=== PATIENT | male | born 1960 | race Caucasian/White ===

== ENCOUNTER → 2018-12-07 | Outpatient (CLI) | payer OTHER ==
--- NOTE | 2018-12-07 12:04 | XR ---
EXAMINATION TYPE: XR chest 2V DATE OF EXAM: 12/07/2018 COMPARISON: 11/07/2010 HISTORY: 58-year-old male with cough TECHNIQUE: Frontal and lateral views FINDINGS: The cardiomediastinal silhouette, aorta, and pulmonary vasculature are within normal limits. There is some strandy atelectasis at the left base. Otherwise, lungs and pleural spaces are clear. IMPRESSION: No acute cardiopulmonary process.
== END | disposition home or self-care (01) ==
LOC: RADXRMAIN 08:03
PROVIDERS: ATTEND Internal Medicine
DX: J06.9 Acute upper respiratory infection, unspecified (principal)
CPT/HCPCS: 71046

== ENCOUNTER → 2019-03-26 | Outpatient (CLI) | payer OTHER ==
--- NOTE | 2019-03-27 09:53 | P.STRESS ---
- Stress Test Note Stress Test Results/Findings: Exam Performed: stress test Exam Date: 03/26/19 Reason for Exam: CHEST PAIN, ARRYTHMIA Height: 6 ft Weight: 106.594 kg Protocol: PERRY Stage: III Duration of Exercise: 9:00 Resting Heart Rate: 73 Resting Blood Pressure: 136/77 Maximum Achieved Heart Rate: 150 Maximum Achieved Blood Pressure: 198/64 85% PMHR: 139 100% PMHR: 164 METS: 10.5 Technologist Comment: Stress Test Results/Findings: This is a 58-year-old gentleman with history of smoking and family history of ischemic heart disease being evaluated for symptoms of chest pain and palpitations. Stress data the baseline EKG showed sinus rhythm with normal TN interval, QRS duration with occasional PVCs. Patient blood pressure at rest is 136/77 with pulse rate of 73. Patient walked on the Perry protocol for 9 minutes achieving a maximum heart rate of 1:50 with a blood pressure 198/64. EKGs taken during exercise showed that patient went into a junctional rhythm and junctional tachycardia and achieved a maximum heart rate of 150. Patient of mine in a junctional rhythm, but a heart rate came down to about 100 in the post exercise period. Final impression #1. Negative stress test #2 patient did not express any chest pain. #3. Patient developed junctional rhythm and junctional tachycardia during exercise. At the end of the test and also in [place]. Patient continued to be junctional rhythm without any clear-cut P waves. This could be further evaluated by 24-hour DCG.
--- NOTE | 2019-03-27 12:59 | EST ---
Stress Test Results/Findings: Exam Performed: stress test Exam Date: 03/26/19 Reason for Exam: CHEST PAIN, ARRYTHMIA Height: 6 ft Weight: 106.594 kg Protocol: PERRY Stage: III Duration of Exercise: 9:00 Resting Heart Rate: 73 Resting Blood Pressure: 136/77 Maximum Achieved Heart Rate: 150 Maximum Achieved Blood Pressure: 198/64 85% PMHR: 139 100% PMHR: 164 METS: 10.5 Technologist Comment: Stress Test Results/Findings: This is a 58-year-old gentleman with history of smoking and family history of ischemic heart disease being evaluated for symptoms of chest pain and palpitations. Stress data the baseline EKG showed sinus rhythm with normal MT interval, QRS duration with occasional PVCs. Patient blood pressure at rest is 136/77 with pulse rate of 73. Patient walked on the Perry protocol for 9 minutes achieving a maximum heart rate of 1:50 with a blood pressure 198/64. EKGs taken during exercise showed that patient went into a junctional rhythm and junctional tachycardia and achieved a maximum heart rate of 150. Patient of mine in a junctional rhythm, but a heart rate came down to about 100 in the post exercise period. Final impression #1. Negative stress test #2 patient did not express any chest pain. #3. Patient developed junctional rhythm and junctional tachycardia during exercise. At the end of the test and also in post exercise period ,. Patient continued to be junctional rhythm without any clear-cut P waves. This could be further evaluated by 24-hour DCG. RAMIROD
--- NOTE | 2019-03-29 10:27 | P.PN ---
Progress Note - Text Progress Note Date: 03/29/19 REPORT ON THE 24-HOUR DCG: Baseline EKG showed sinus rhythm with an average heart rate of about 84 bpm. Patient had frequent PVCs couplets, bigeminal pattern and has been pattern. Occasional APCs were noted. Patient complained of one episode of fluttering in the heart, not correlating with any cardiac events. Patient mentioned that he did not have much symptoms during the monitoring. Final impression #1. Sinus rhythm. #2. Frequent PVCs and couplets and 30 J pattern. #3. Rare PVCs #4. Patient complained of an episode of fluttering not correlating with any cardiac events. Patient did not have significant symptoms during the monitoring period
== END | disposition home or self-care (01) ==
LOC: RADNMMAIN 08:45
PROVIDERS: ATTEND Internal Medicine
DX: I49.3 Ventricular premature depolarization (principal); I47.1 Supraventricular tachycardia
CPT/HCPCS: 93017; 93225; 93226

== ENCOUNTER 2019-07-10 18:03 | Emergency (ER) | payer OTHER ==
[2019-07-10] MEDS ORDERED: SODIUM CHLORIDE 0.9% 1,000 ML IV STA (18:51)
--- NOTE | 2019-07-10 19:05 | ED ---
Chest Pain HPI - General Chief Complaint: Chest Pain Stated Complaint: CHEST PAIN Time Seen by Provider: 07/10/19 18:45 Source: patient, RN notes reviewed, old records reviewed Mode of arrival: ambulatory Limitations: no limitations - History of Present Illness Initial Comments: This is a 58-year-old male the ER for evaluation of chest pain anterior chest pain pain back pain in her shoulder blades. Patient has history of chronic back pain from work he did go to the chiropractor today and became very short of breath pain with a deep breath pain is anterior chest. He has had history of high blood pressure does have history of high cholesterol. He had a stress test about 4 weeks ago. He believes her results were normal. No other significant travel history does occasionally get swelling in his lower extremity is. does not take anything chronically for pain. MD Complaint: chest pain (Anterior chest), other (No rash worse with a deep breath) -: hour(s) Onset: during rest Pain Location: substernal Pain Radiation: back Severity: moderate Severity scale (1-10): 7 Quality: sharp Consistency: constant Improves With: nothing Worsens With: exertion, inspiration Anginal Symptoms: dyspnea Treatments Prior to Arrival: none - Related Data Home Medications Medication Instructions Recorded Confirmed Atorvastatin [Lipitor] 20 mg PO HS 07/10/19 07/10/19 Cbd Oil 1 ml PO DAILY 07/10/19 07/10/19 Melatonin 5 mg PO HS 07/10/19 07/10/19 Montelukast [Singulair] 10 mg PO HS 07/10/19 07/10/19 [place]-3 Fatty Acids [[place]-3] 1,000 mg PO DAILY 07/10/19 07/10/19 Topiramate [Topamax] 50 mg PO BID 07/10/19 07/10/19 lamoTRIgine [LaMICtal] 200 mg PO DAILY 07/10/19 07/10/19 Allergies Allergy/AdvReac Type Severity Reaction Status Date / Time No Known Allergies Allergy Verified 07/10/19 19:26 Review of Systems ROS Statement: Those systems with pertinent positive or pertinent negative responses have been documented in the HPI. ROS Other: All systems not noted in ROS Statement are negative. Past Medical History Past Medical History: Hyperlipidemia History of Any Multi-Drug Resistant Organisms: None Reported Past Surgical History: Orthopedic Surgery Past Psychological History: No Psychological Hx Reported Smoking Status: Current every day smoker Past Alcohol Use History: Occasional Past Drug Use History: None Reported General Exam Limitations: no limitations General appearance: alert, in no apparent distress Head exam: Present: atraumatic, normocephalic, normal inspection Eye exam: Present: normal appearance, PERRL, EOMI. Absent: scleral icterus, conjunctival injection, periorbital swelling ENT exam: Present: normal exam, mucous membranes moist Neck exam: Present: normal inspection. Absent: tenderness, meningismus, lymphadenopathy Respiratory exam: Present: normal lung sounds bilaterally. Absent: respiratory distress, wheezes, rales, rhonchi, stridor Cardiovascular Exam: Present: regular rate, normal rhythm, normal heart sounds. Absent: systolic murmur, diastolic murmur, rubs, gallop, clicks GI/Abdominal exam: Present: soft, normal bowel sounds. Absent: distended, tenderness, guarding, rebound, rigid Extremities exam: Present: normal inspection, full ROM, normal capillary refill. Absent: tenderness, pedal edema, joint swelling, calf tenderness Back exam: Present: normal inspection Neurological exam: Present: alert, oriented X3, CN II-XII intact Psychiatric exam: Present: normal affect, normal mood Skin exam: Present: warm, dry, intact, normal color. Absent: rash Course Vital Signs 07/10/19 07/10/19 07/10/19 18:14 19:13 19:14 Temperature 98.3 F Pulse Rate 78 73 Respiratory 18 18 18 Rate Blood Pressure 156/90 155/85 O2 Sat by Pulse 98 96 Oximetry 07/10/19 20:48 Temperature Pulse Rate 71 Respiratory 16 Rate Blood Pressure 157/91 O2 Sat by Pulse 96 Oximetry - Reevaluation(s) Reevaluation #1: 07/10/19 21:39 medicla record is reviewed Reevaluation #2: 07/10/19 21:39 patient is without chest pain, in NADistress Chest Pain MDM - MDM 58 male to the ED co chest pain, recent normal stress test, no pain here in ED, CTa negative for acute disaease, EKG is negative for acute disease. PAtient is ok for discharge feeling Disposition Clinical Impression: Chest pain, Atypical chest pain Disposition: HOME SELF-CARE Condition: Good Instructions (If sedation given, give patient instructions): Costochondritis (ED), Chest Pain (ED) Is patient prescribed a controlled substance at d/c from ED?: No Referrals: Pepe Braxton MD [Primary Care Provider] - 1-2 days
[2019-07-10 19:37] LABS: Basophils # (A) 0.1 k/uL (0-0.2); Basophils % (A) 0 %; Eosinophils # (A) 0.3 k/uL (0-0.7); Eosinophils % (A) 3 %; HCT 44.7 % (39.0-53.0); HGB 15.1 gm/dL (13.0-17.5); Lymphocytes # (A) 2.4 k/uL (1.0-4.8); Lymphocytes % (A) 23 %; MCH 30.1 pg (25.0-35.0); MCHC 33.8 g/dL (31.0-37.0); MCV 89.1 fL (80.0-100.0); Mean Platelet Volume 5.8; Monocytes # (A) 0.5 k/uL (0-1.0); Monocytes % (A) 5 %; Neutrophils # (A) 6.9 k/uL (1.3-7.7); Neutrophils % (A) 67 %; Platelet Count 273 k/uL (150-450); RBC 5.01 m/uL (4.30-5.90); RDW 13.2 % (11.5-15.5); WBC 10.4 k/uL (3.8-10.6)
[2019-07-10 19:47] LABS: Albumin 4.4 g/dL (3.5-5.0); Calcium 9.7 mg/dL (8.4-10.2); Potassium 4.3 mmol/L (3.5-5.1); Total Bilirubin 0.6 mg/dL (0.2-1.3); Total Protein 7.3 g/dL (6.3-8.2)
[2019-07-10 19:51] LABS: INR 0.9 (<1.2); Partial Thromboplastin Time 24.5 sec (22.0-30.0); Prothrombin Time 9.7 sec (9.0-12.0)
--- NOTE | 2019-07-10 20:10 | CT ---
EXAMINATION TYPE: CT angio chest DATE OF EXAM: 07/10/2019 7:46 PM COMPARISON: HISTORY: Chest pain radiating into shoulder blades CT DLP: 618.7 mGycm Automated exposure control for dose reduction was used. CONTRAST: CTA scan of the thorax is performed with IV Contrast, patient injected with 100 mL of Isovue 370, pul monary embolism protocol. . There are 3-D post processed images. FINDINGS: The lungs are clear of infiltrate. Heart is normal in size. There is no pericardial effusion. There i s no pleural effusion. There are no hilar masses. There is no mediastinal adenopathy. There are small paratracheal lymph nod es that measure up to 5 mm. Bony thorax is intact. There is spurring in the thoracic spine. I see no filling defects in the pulmonary arteries. There are a few bilateral bronchial lymph nodes u p to 1.5 cm. Thoracic aorta is intact. There is no aneurysm or dissection. There is probably a 5 mm c alcified gallstone. There are small right renal calculi in the visualized kidneys. IMPRESSION: NO EVIDENCE OF PULMONARY EMBOLISM. NONSPECIFIC MILD BRONCHIAL LYMPH NODES. NORMAL HEART.
[2019-07-10 22:12] VITALS: BP 157/88; PULSE 63; RESP 18; TEMP 97.7
== END 2019-07-10 22:11 | disposition home or self-care (01) ==
LOC: EC 18:03
DX: R07.89 Other chest pain (principal); E78.5 Hyperlipidemia, unspecified; E78.00 Pure hypercholesterolemia, unspecified; F17.200 Nicotine dependence, unspecified, uncomplicated; Z79.899 Other long term (current) drug therapy
CPT/HCPCS: 36415; 93005; 80053; 84484; 85025; 85610; 85730; 71275; 99285; 96360; Q9967

== ENCOUNTER → 2021-07-22 | Outpatient (CLI) | payer OTHER ==
--- NOTE | 2021-07-22 16:26 | XR ---
EXAMINATION TYPE: XR knee limited 2 views bilateral, XR tibia fibula 2 views LT DATE OF EXAM: 07/22/2021 COMPARISON: NONE HISTORY: 60-year-old male chronic bilateral knee pain, worse on the left, now extending into the left diaz. FINDINGS: On the left, there is moderate narrowing of cartilage and joint space in the medial compartment. Tric ompartmental degenerative spurring is present. Prominent degenerative spurring patellofemoral compart ment. Mild anterior infrapatellar soft tissue swelling. Possible slight thickening of the patellar te ndon. No acute fracture, subluxation, or dislocation. The remainder of the tibia and fibula show no e vidence for fracture. No periostitis or osteolysis. Left ankle articulation grossly intact. On the right, tricompartmental degenerative spurring.. Trace knee joint effusion. No acute fracture, subluxation, or dislocation seen on either side. IMPRESSION: 1. Left knee: Tricompartmental osteoarthrosis, at least moderate in the medial and patellofemoral com partments. No acute osseous abnormality seen. 2. Left tibia/fibula: Anterior infrapatellar soft tissue swelling. Possible mild thickening of the pa tellar tendon that could represent patellar tendinosis. MRI if clinically indicated. 3. Right knee: Mild tricompartmental degenerative spurring. No acute osseous abnormality seen.
== END | disposition home or self-care (01) ==
LOC: RADXRMAIN 15:33
PROVIDERS: ATTEND Internal Medicine
DX: M17.0 Bilateral primary osteoarthritis of knee (principal)

== ENCOUNTER → 2021-08-24 | Outpatient (CLI) | payer OTHER ==
--- NOTE | 2021-08-25 04:24 | MR ---
EXAMINATION TYPE: MR ankle LT wo con DATE OF EXAM: 08/24/2021 COMPARISON: None HISTORY: Lt ankle pain into lower leg, trauma to diaz Multiplanar multiecho imaging of the left ankle without contrast. There is diffuse increased signal in the visualized distal tibia consistent with bone edema seen on t he T2 images. Achilles tendon is intact. Medial and lateral flexor tendons appear intact. There is a varus deformity of the midfoot with medial subluxation of the cuboidal bone and the navicular. Ankle mortise is anatomic. The collateral ligaments appear intact. There is no evidence of a fracture. Ther e is a mild ankle joint effusion. There is some spurring of the posterior malleolus. Plantar fascia a ppears intact. IMPRESSION: There is edema in the distal tibia consistent with a bone bruise. Ankle joint effusion and mild osteo arthritis. No fracture seen. Mild forefoot varus.
== END | disposition home or self-care (01) ==
LOC: RADMRIMAIN 06:03
PROVIDERS: ATTEND Orthopaedic Surgery
DX: S99.912A Unspecified injury of left ankle, initial encounter (principal); M19.072 Primary osteoarthritis, left ankle and foot; M25.472 Effusion, left ankle; M21.172 Varus deformity, not elsewhere classified, left ankle; X58.XXXA Exposure to other specified factors, initial encounter

== ENCOUNTER → 2022-07-27 | Outpatient (CLI) | payer OTHER ==
--- NOTE | 2022-07-27 19:41 | US ---
EXAMINATION TYPE: US thyroid st tissue head/neck DATE OF EXAM: 07/27/2022 COMPARISON: NONE CLINICAL HISTORY: E03.9 hypothyroidism unsp. abnormal labs GLAND SIZE: Right Lobe: 4.9 x 2.0 x 1.6 cm Overall Parenchyma: heterogenous Left Lobe: 4.4 x 1.9 x 1.8 cm Overall Parenchyma: heterogeneous Isthmus Thickness: 0.5 cm NODULES RIGHT: # of nodules measured on right: 0 LEFT: # of nodules measured on left: 0 ISTHMUS: # of nodules measured in the isthmus: 0 Bilateral neck scanned, no evidence of lymphadenopathy. Heterogeneous normal-sized thyroid without discrete nodule. IMPRESSION: As above.
== END | disposition home or self-care (01) ==
LOC: RADUSWWP 16:50
PROVIDERS: ATTEND Family Medicine
DX: E03.9 Hypothyroidism, unspecified (principal)
CPT/HCPCS: 76536

== ENCOUNTER 2023-02-06 14:06 | Emergency (ER) | payer OTHER ==
[2023-02-06] MEDS ORDERED: DIPH,PERTUS(ACELL)TETVAC-LF 0.5 ML VIAL IM ONE (14:20)
[2023-02-06] MEDS ORDERED: SODIUM CHLORIDE 0.9% 500 ML 500 ML IV STA (14:20)
[2023-02-06] MEDS ORDERED: HYDROmorphone 1 MG/ML 1 ML SYRINGE IVP STA ×3 (14:20→15:44)
[2023-02-06 14:22] VITALS: BP 168/78; PULSE 122; RESP 28; TEMP 98.9
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
[2023-02-06 14:46] LABS: Basophils # (A) 0.1 k/uL (0-0.2); Basophils % (A) 1 %; Eosinophils # (A) 0.2 k/uL (0-0.7); Eosinophils % (A) 2 %; HCT 49.3 % (39.0-53.0); HGB 16.3 gm/dL (13.0-17.5); Lymphocytes # (A) 3.1 k/uL (1.0-4.8); Lymphocytes % (A) 31 %; MCH 28.9 pg (25.0-35.0); MCHC 33.2 g/dL (31.0-37.0); MCV 87.1 fL (80.0-100.0); Mean Platelet Volume 7.3; Monocytes # (A) 0.5 k/uL (0-1.0); Monocytes % (A) 5 %; Neutrophils # (A) 5.9 k/uL (1.3-7.7); Neutrophils % (A) 59 %; Platelet Count 304 k/uL (150-450); RBC 5.66 m/uL (4.30-5.90); RDW 13.2 % (11.5-15.5)
--- NOTE | 2023-02-06 14:50 | XR ---
EXAMINATION TYPE: XR chest 1V portable DATE OF EXAM: 02/06/2023 COMPARISON: CTA chest July 10, 2019 HISTORY: Fall injury with pain TECHNIQUE: Single AP portable frontal supine view of the chest is obtained. FINDINGS: Extensive overlying subcutaneous emphysema particularly right neck region. Lungs appear cl ear without pneumothorax clearly identified. The cardiac silhouette size is stable and within normal limits. The osseous structures are intact. IMPRESSION: Extensive subcutaneous emphysema greatest right supraclavicular region. No definitive pn eumothorax.
--- NOTE | 2023-02-06 14:51 | XR ---
EXAMINATION TYPE: XR pelvis AP view DATE OF EXAM: 02/06/2023 CLINICAL HISTORY: Falling injury with pain TECHNIQUE: A single AP view of the pelvis is obtained. COMPARISON: None. FINDINGS: There is no acute fracture/dislocation evident in the pelvis. Moderate axial joint space l oss both hips. Sacroiliac joints appear symmetric and felt within normal limits. Pubic symphysis is i ntact. The overlying soft tissue appears unremarkable. IMPRESSION: There is no acute displaced fracture in the pelvis.
[2023-02-06 15:00] LABS: ALT 54 U/L (4-49); AST 56 U/L (17-59); African American GFR (CKD) >90 (>60 ml/min/1.73 sqM); Albumin 4.9 g/dL (3.5-5.0); Alcohol <10 mg/dL; Alkaline Phosphatase 84 U/L (38-126); Anion Gap 14 mmol/L; Blood Urea Nitrogen 20 mg/dL (9-20); Calcium 10.1 mg/dL (8.4-10.2); Carbon Dioxide 22 mmol/L (22-30); Chloride 104 mmol/L (98-107); Glucose 145 mg/dL (74-99); Non-African American GFR(CKD) 82 (>60 ml/min/1.73 sqM); Potassium 4.9 mmol/L (3.5-5.1); Sodium 140 mmol/L (137-145); Total Bilirubin 0.8 mg/dL (0.2-1.3); Total Protein 8.2 g/dL (6.3-8.2)
[2023-02-06 15:04] LABS: INR 0.9 (<1.2)
[2023-02-06 15:10] LABS: Partial Thromboplastin Time 20.8 sec (22.0-30.0)
--- NOTE | 2023-02-06 15:14 | CT ---
EXAMINATION TYPE: CT brain wo con DATE OF EXAM: 02/06/2023 HISTORY: trauma, fell off ladder. Headache. CT DLP: 1225.4 mGycm. Automated Exposure Control for Dose Reduction was Utilized. TECHNIQUE: CT scan of the head is performed without contrast. COMPARISON: None. FINDINGS: There is no acute intracranial hemorrhage or midline shift identified. There is mild diff use ventricular and sulcal prominence consistent with diffuse age-related cerebral atrophy. There is mild low-attenuation in the periventricular white matter consistent with chronic small vessel ischem ic change. The calvarium is intact. Visualized paranasal sinuses are clear. Globes are intact bila terally. IMPRESSION: No acute intracranial hemorrhage or midline shift.
--- NOTE | 2023-02-06 15:27 | CT ---
EXAMINATION TYPE: CT ChestAbdPelvis w con DATE OF EXAM: 02/06/2023 COMPARISON: CTA chest 2019 HISTORY: trauma, fell off ladder CT DLP: 2406 mGycm. Automated Exposure Control for Dose Reduction was Utilized. CONTRAST: CT scan of the thorax, abdomen and pelvis is performed with IV Contrast, patient injected with 100 mL of Isovue 300. Trauma protocol. FINDINGS: LUNGS: Tiny right thorax anteriorly. Left lung is clear. There is no pleural effusion seen bilatera lly. No suspicious focal consolidations The tracheobronchial tree is patent. MEDIASTINUM: There are no greater than 1 cm hilar or mediastinal lymph nodes. No cardiomegaly or pe ricardial effusion is seen. Other: Extensive right-sided subcutaneous emphysema extends superiorly and surrounds the thyroid glan d LIVER/GB: No significant abnormality is appreciated. PANCREAS: No significant abnormality is seen. SPLEEN: No significant abnormality is seen. ADRENALS: No significant abnormality is seen. KIDNEYS: Approximate 4 scattered right renal calculi measuring up to 10 mm lower pole level coronal i mage 82. Incidental 1.7 cm simple appearing thin-walled cyst lower pole level left kidney coronal hilton ge 84. BOWEL: Sigmoid colonic diverticula. No CT evidence for acute diverticulitis.. GENITAL ORGANS: No gross abnormality seen. LYMPH NODES: No greater than 1cm abdominal or pelvic lymph nodes are appreciated. OSSEOUS STRUCTURES: Moderate to severe disc space narrowing L5-S1 level. Slight scoliotic curvature. Acute slightly displaced fracture involving the anterior right first rib (coronal series 302 image 69 ), right lateral second rib (70), nondisplaced fractures right lateral third and fourth ribs (80) and fifth rib (85), displaced acute fracture right lateral sixth through eighth ribs (coronal images 77 through 80). Acute slightly displaced fracture involving posterior right fourth through sixth ribs (c oronal images 95 through 101), acute nondisplaced fracture posterior right third rib to spot coronal image 92. No left-sided rib or sternal fractures. No acute displaced pelvic or spine fracture. No clavicular or right shoulder fracture. OTHER: Small fat-containing umbilical hernia. IMPRESSION: Acute nondisplaced and displaced fractures involving right first through eighth ribs with 2 fractures of the right third through sixth ribs or "flail chest" present. Tiny right sided pneumo thorax. Extensive right-sided subcutaneous emphysema. No acute posttraumatic finding in the abdomen or pelvis.
[2023-02-06] MEDS ORDERED: ONDANSETRON 4 MG/2 ML VIAL IVP STA (15:52)
== END 2023-02-06 16:10 | disposition other institution (70) ==
LOC: EC 14:06
DX: S00.81XA Abrasion of other part of head, initial encounter (principal); S22.5XXA Flail chest, initial encounter for closed fracture; I10 Essential (primary) hypertension; E78.5 Hyperlipidemia, unspecified; E07.9 Disorder of thyroid, unspecified; F31.9 Bipolar disorder, unspecified; F17.290 Nicotine dependence, other tobacco product, uncomplicated; Z79.890 Hormone replacement therapy; Z79.899 Other long term (current) drug therapy; Z79.1 Long term (current) use of non-steroidal anti-inflammatories (NSAID); W11.XXXA Fall on and from ladder, initial encounter
CPT/HCPCS: 99285; 36415; 93005; 86900; 86901; 80053; 84484; 85025; 85610; 85730; 86850; 72170; 71045; 70450; 71260; 74177; 90715; 90471; 96374; 96376; 96375; 96361; G0480; J2405; J1170; Q9967; 80320

== ENCOUNTER 2023-03-10 16:02 | Emergency (ER) | payer OTHER ==
--- NOTE | 2023-03-10 16:32 | XR ---
EXAMINATION TYPE: XR chest 1V portable DATE OF EXAM: 03/10/2023 HISTORY: Shortness of breath. COMPARISON: 02/06/2023 TECHNIQUE: Single view of the chest is submitted. FINDINGS: Demonstrated are scattered senescent parenchymal change. There is right perihilar pleural parenchymal densities seen. I do not see evidence for sizable pneumo thorax at this time. Right-sided subpulmonic effusion not excluded. The heart is stable. Hilar and mediastinal structures are within normal limits. Degenerative changes are seen of the dorsal spine. Deformity of the bilateral ribs are felt to reflec t fractures of uncertain age. IMPRESSION: 1. There is right perihilar pleural parenchymal densities seen. I do not see evidence for sizable pn eumothorax at this time. Right-sided subpulmonic effusion not excluded.
[2023-03-10 16:46] LABS: Basophils # (A) 0.1 k/uL (0-0.2); Basophils % (A) 1 %; Eosinophils # (A) 0.3 k/uL (0-0.7); Eosinophils % (A) 3 %; HCT 39.4 % (39.0-53.0); Hypochromasia Slight; Lymphocytes # (A) 2.3 k/uL (1.0-4.8); Lymphocytes % (A) 23 %; MCH 28.9 pg (25.0-35.0); MCHC 33.2 g/dL (31.0-37.0); MCV 87.1 fL (80.0-100.0); Mean Platelet Volume 6.8; Monocytes # (A) 0.6 k/uL (0-1.0); Monocytes % (A) 6 %; Neutrophils # (A) 6.5 k/uL (1.3-7.7); Neutrophils % (A) 65 %; Platelet Count 459 k/uL (150-450); RBC 4.52 m/uL (4.30-5.90); RDW 13.5 % (11.5-15.5); WBC 9.9 k/uL (3.8-10.6)
[2023-03-10 16:53] LABS: ALT 21 U/L (4-49); AST 21 U/L (17-59); African American GFR (CKD) >90 (>60 ml/min/1.73 sqM); Albumin 3.9 g/dL (3.5-5.0); Alkaline Phosphatase 142 U/L (38-126); Anion Gap 14 mmol/L; Blood Urea Nitrogen 14 mg/dL (9-20); Calcium 9.8 mg/dL (8.4-10.2); Carbon Dioxide 22 mmol/L (22-30); Chloride 105 mmol/L (98-107); Glucose 123 mg/dL (74-99); Non-African American GFR(CKD) >90 (>60 ml/min/1.73 sqM); Sodium 141 mmol/L (137-145); Total Bilirubin 0.4 mg/dL (0.2-1.3); Total Protein 7.8 g/dL (6.3-8.2)
[2023-03-10 16:57] VITALS: RESP 18
[2023-03-10 17:07] LABS: HGB 13.1 gm/dL (13.0-17.5)
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
--- NOTE | 2023-03-10 18:06 | CT ---
EXAMINATION TYPE: CT chest wo con DATE OF EXAM: 03/10/2023 COMPARISON: CT 02/06/2023 HISTORY: worsening pneumo following fall one month ago CT DLP: 447.1 mGycm. Automated Exposure Control for Dose Reduction was Utilized. TECHNIQUE: CT scan of the thorax is performed without IV contrast. FINDINGS: Airways are clear. There is a small right pleural effusion. There are bilateral scattered ill-defined added opacities consistent with segmental/subsegmental atel ectasis, provided there is no clinical concern for pneumonia. 9 mm right upper lobe subpleural pulmon jaycee nodule is redemonstrated. Subacute nondisplaced and displaced fractures involving right first through eighth ribs, with 2 fract ures of the right third through sixth ribs or "flail chest" present. There is interval resolution of the tiny right pneumothorax seen on 02/06/2023. There is also interval resolution of the extensive ri ght-sided subcutaneous emphysema seen on 02/06/2023. No definitive greater than 1 cm hilar or mediastinal lymph nodes. No cardiomegaly or pericardial effu guru is seen. No acute subdiaphragmatic process. IMPRESSION: Interval improvement compared with CT 02/06/2023.
[2023-03-10] MEDS ORDERED: cefTRIAXone IN SWFI 1,000 MG/10 ML SYRINGE IVP STA (18:18)
[2023-03-10 18:56] VITALS: BP 120/74; PULSE 85; TEMP 97.9
== END 2023-03-10 18:46 | disposition home or self-care (01) ==
LOC: EC 16:02
DX: L03.313 Cellulitis of chest wall (principal); I10 Essential (primary) hypertension; E78.5 Hyperlipidemia, unspecified; K21.9 Gastro-esophageal reflux disease without esophagitis; E07.9 Disorder of thyroid, unspecified; F17.290 Nicotine dependence, other tobacco product, uncomplicated; Z79.890 Hormone replacement therapy; Z79.899 Other long term (current) drug therapy
CPT/HCPCS: 36415; 71045; 71250; 80053; 85025; 99285

== ENCOUNTER 2023-07-12 11:44 | Emergency (ER) | payer OTHER ==
[2023-07-12] MEDS ORDERED: LIDOCAINE 1% INJ 10MG/ML (20 ML MDV) SQ ONE (12:05)
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
[2023-07-12 12:18] VITALS: RESP 18; TEMP 97.8
--- NOTE | 2023-07-12 12:50 | XR ---
EXAMINATION TYPE: XR hand complete RT DATE OF EXAM: 07/12/2023 CLINICAL HISTORY: pain TECHNIQUE: Frontal, lateral and oblique images of the right hand are obtained. COMPARISON: None. FINDINGS: There is no acute fracture/dislocation evident. Healed remote fracture of the right fifth metacarpal. The joint spaces appear within normal limits. No radiopaque foreign body identified at t his time. IMPRESSION: There is no acute fracture or dislocation ICD 10 NO FRACTURE, INITIAL EVALUATION
[2023-07-12 13:58] VITALS: BP 144/75; PULSE 66
== END 2023-07-12 13:53 | disposition home or self-care (01) ==
LOC: EC 11:44
DX: S61.411A Laceration without foreign body of right hand, initial encounter (principal); I10 Essential (primary) hypertension; K21.9 Gastro-esophageal reflux disease without esophagitis; E78.5 Hyperlipidemia, unspecified; E07.9 Disorder of thyroid, unspecified; F17.290 Nicotine dependence, other tobacco product, uncomplicated; Z79.890 Hormone replacement therapy; Z79.899 Other long term (current) drug therapy; W25.XXXA Contact with sharp glass, initial encounter
CPT/HCPCS: 73130; 12002; 99284; J2001

== ENCOUNTER → 2024-08-23 | Outpatient (CLI) | payer OTHER ==
--- NOTE | 2024-08-23 15:08 | CTL ---
EXAMINATION TYPE: CT Low Dose Lung DATE OF EXAM ORDERED: 08/23/2024 COMPARISON: CT chest 03/10/2023, CT chest abdomen pelvis 02/06/2023, CTA chest 07/10/2019 CLINICAL INDICATION: Male, 63 years old with history of Z12.2 LUNG CA SCR Z87.891 FORMER SMOKER; [facility], , Lung cancer screening, History of Smoking/tobacco use. TECHNIQUE: Low dose computed tomography scan was performed through the chest at 1 mm thick sections a nd reconstructed images in multiple planes at 1 mm and [address] DLP: 157.[address] CTDI: 4.10 mGy Automated exposure control for dose reduction was used. CT DIAGNOSTIC QUALITY: Satisfactory FINDINGS: Nodules: Stable solid right upper lobe 9.7 mm pulmonary nodule dating back to 2019 (series 6, image 31). Consi siva benign. Stable left upper lobe 3.7 mm pulmonary nodule dating back to 2019 (series 6, image 32). Consider renuka ign. Stable 4.7 mm nodule along the left major fissure dating back to 2019 (series 6, image 32). Considere d benign. Stable 5.3 mm pulmonary nodule within the medial aspect of the right lower lobe (series 6, image 41). Stable dating back to 2019 and considered benign. No new or enlarging pulmonary nodules. LUNGS: COPD: Severity: None Fibrosis: Severity: None Lymph nodes: None Other findings: There is scarring atelectasis within the right lower lobe. RIGHT PLEURAL SPACE: Effusion: None Calcification: None Thickening: None Pneumothorax: None LEFT PLEURAL SPACE: Effusion: None Calcification: None Thickening: None Pneumothorax: None HEART: Heart Size: Normal Coronary Calcification: None Pericardial Effusion: None OTHER FINDINGS: Upper abdomen: Cholelithiasis. Bony thorax: Remote fractures of the right lateral ribs with some demonstrating incomplete union. Supraclavicular region: None Other: Mild atherosclerotic calcification of aorta and its branches. IMPRESSION: 1. Stable pulmonary nodules dating back to 2019 and considered benign. No new or enlarging pulmonary nodules. 2. Cholelithiasis. 3. Remote right rib fractures with some demonstrating incomplete union. CT LUNG RAD AND CT CHEST RECOMMENDATION: Lung-Rad 2 Benign Appearance or Behavior: Continue annual sc reening with LDCT in 12 months. S Modifier (other clinically significant findings): None [facility], , 08/23/2024 3:06 PM
== END | disposition home or self-care (01) ==
LOC: RADCTMAIN 08:29
PROVIDERS: ATTEND Family Medicine
DX: Z12.2 Encounter for screening for malignant neoplasm of respiratory organs (principal); S22.41XA Multiple fractures of ribs, right side, initial encounter for closed fracture; R91.8 Other nonspecific abnormal finding of lung field; K80.20 Calculus of gallbladder without cholecystitis without obstruction; I70.0 Atherosclerosis of aorta; X58.XXXA Exposure to other specified factors, initial encounter; Z87.891 Personal history of nicotine dependence
CPT/HCPCS: 71271